=== PATIENT | female | born 1940 | race Caucasian/White ===

== ENCOUNTER 2016-06-21 12:37 | Day surgery (SDC) | payer MEDICARE ==
[~2016-06-21] VITALS: Ht 170.2 cm; Wt 105.9 kg
[~2016-06-21 12:37] MED LIST: ACIDOPHILUS PO; ASPIRIN 81M81 MG/TA2 PO; CEFTIN 250250 MG/TAB PO; CENTRUM SILVER1 TA1 PO; DILAUDID 2MG TAB2 MG PO; ELITE MAGNESIUM1 TAB PO; INDERAL 20MG20 MG PO; K-DUR 2020 MEQ PO; K-DUR20 MEQ PO; K-POTASSIUM CH20 ME1 PO; LISINOPRIL/HCTZ1 TA2 PO; LOPRESSOR 225 MG/TAB PO; LOPRESSOR 550 MG/TAB PO; MOBIC15 MG PO; MULTIPLE VITAMI1 CAP PO; MVI PO; NEURONTIN100 MG/CAP PO; NEURONTIN300 MG/CAP PO; OGEN 0.6250.75 MG PO; OGEN 0.625MG0.625 MG PO; ORTHO-EST0.75 MG PO; POTASSIUM CH2 MEQ/ML PO; PRIL40 PO; PRILOSEC 20MG20 MG PO; PRILOSEC20 M1 PO; PRINIVIL20 MG PO; PROZAC 20MG20 MG PO; PYRIDIUM200 M1 PO; TYLENOL 325MG325 MG PO; TYLENOL ARTHRI650 M1 PO; ULTRAM 50MG TAB50 MG PO; VERAPAMIL HCL240 M2 PO; VESICARE PO; VITAMIN B12 PO; VITAMIN B12250 MCG PO; VITAMIN C BUFF500 MG PO; VITAMIN C500 MG PO; VITAMIN E1000 IU PO; VITAMIN E1000 U/CAP PO; WELCHOL 625MG625 MG PO; ZOCOR 20MG20 MG PO; ZYRTEC 10MG10 MG PO
[2016-06-21 13:50] VITALS: BP 143/81; PULSE 64; TEMP 97.5
[2016-06-21] MEDS ORDERED: [UNRECOGNIZED DRUG - REMARK] (14:00)
[2016-06-21 14:55] VITALS: BP 142/78; PULSE 67; TEMP 97.7
[2016-06-21 15:00] VITALS: BP 132/76; PULSE 65
[2016-06-21 15:15] VITALS: BP 132/76; PULSE 65
[2016-06-21 15:30] VITALS: BP 145/76; PULSE 67
[2016-06-21] MEDS ORDERED: DEXILANT60 MG PO (15:41)
[2016-06-21 15:45] VITALS: BP 134/94; PULSE 65
== END 2016-06-21 16:00 | disposition home or self-care (01) ==
LOC: SDCO 12:37
DX: K22.2 Esophageal obstruction (principal); K21.9 Gastro-esophageal reflux disease without esophagitis; R13.12 Dysphagia, oropharyngeal phase; R13.10 Dysphagia, unspecified
CPT/HCPCS: OP; C1726; J2250; J3010; J7030

== ENCOUNTER 2017-06-27 09:03 | Day surgery (SDC) | payer MEDICARE ==
[~2017-06-27] VITALS: Ht 170.2 cm; Wt 104.4 kg
[~2017-06-27 09:03] MED LIST changes: +DEXILANT60 MG PO; +[UNRECOGNIZED DRUG - REMARK]
[2017-06-27] MEDS ORDERED: PROTONIX 40MG T40 MG PO (09:35)
[2017-06-27] MEDS ORDERED: MOBIC15 MG PO (09:36)
[2017-06-27 09:46] VITALS: BP 145/86; PULSE 60; TEMP 97
[2017-06-27 11:05] VITALS: BP 159/87; PULSE 66; TEMP 97.3
[2017-06-27 11:15] VITALS: BP 154/75; PULSE 63
[2017-06-27 11:30] VITALS: BP 144/84; PULSE 63
== END 2017-06-27 11:50 | disposition home or self-care (01) ==
LOC: SDCO 09:03
DX: K21.0 Gastro-esophageal reflux disease with esophagitis (principal); K22.70 Barrett's esophagus without dysplasia; I10 Essential (primary) hypertension; I25.2 Old myocardial infarction; M19.90 Unspecified osteoarthritis, unspecified site; F31.9 Bipolar disorder, unspecified; Z90.710 Acquired absence of both cervix and uterus; Z79.82 Long term (current) use of aspirin
CPT/HCPCS: J2250; J3010

== ENCOUNTER 2017-07-26 11:11 | Inpatient (IN) | payer MEDICARE ==
[~2017-07-26] VITALS: Ht 170.2 cm; Wt 102.8 kg
[~2017-07-26 11:11] MED LIST changes: +PROTONIX 40MG T40 MG PO
[2017-07-26 11:49] LABS: BASO % 0.2 % (0.0-2.0); EOS # 0.1 (0.0-0.7); EOS % 3.2 % (0-4.0); GRAN # 2.2 (1.4-6.5); GRAN % 53.7 % (42.2-75.2); HEMATOCRIT 43.3 % (37.0-47.0); HEMOGLOBIN 14.7 g/dl (12.5-16.0); LYMPH # 1.2 (1.2-3.4); LYMPH % 29.3 % (20.0-51.0); MEAN CELL VOLUME 92 fl (80.0-100.0); MEAN CORPUSCULAR HEMOGLOBIN 31 pg (27.0-31.0); MEAN CORPUSCULAR HGB CONC 34 g/dl (33.0-37.0); MEAN PLATELET VOLUME 10.2 fl (7.4-10.4); MONO # 0.5 (0.1-0.6); MONO % 13.4 % (1.7-9.3); PLATELET COUNT 199 K/mm3 (130-400); RED BLOOD COUNT 4.69 M/mm3 (4.10-5.30); REDCELL DISTRIBUTION WIDTH-CV 12.5 % (11.5-14.5)
[2017-07-26 11:53] LABS: PROTHROMBIN TIME 11.4 SECONDS (9.7-12.8)
[2017-07-26 11:56] LABS: PARTIAL THROMBOPLASTIN TIME 31.4 SECONDS (26.0-37.0)
[2017-07-26 11:59] LABS: ALANINE AMINOTRANSFERASE 31 U/L (9-52); ALBUMIN 3.9 gm/dL (3.5-5.0); ALKALINE PHOSPHATASE 62 U/L (50-136); ANION GAP 13 mmol/L (7-16); AST,SGOT 26 U/L (15-37); BILIRUBIN,TOTAL 0.6 mg/dL (0.0-1.0); BLOOD UREA NITROGEN 12 mg/dL (7-17); CALCIUM 9.4 mg/dL (8.4-10.2); CARBON DIOXIDE 26 mmol/L (22-30); CHLORIDE 106 mmol/L (98-107); CREATININE, serum 0.57 mg/dL (0.52-1.25); GLUCOSE 115 mg/dL (74-106); LIPASE 81 U/L (23-300); POTASSIUM 4.1 mmol/L (3.4-5.0); SODIUM 145 mmol/L (137-145); TOTAL PROTEIN 7.5 gm/dL (6.4-8.2)
[2017-07-26 12:23] LABS: TROPONIN-I < 0.012 ng/mL (0.000-0.034)
[2017-07-26] MEDS ORDERED: MOBIC15 MG PO (12:26)
[2017-07-26] MEDS ORDERED: WELCHOL 625MG625 MG PO (12:26)
[2017-07-26] MEDS ORDERED: K-DUR20 MEQ PO (12:26)
[2017-07-26] MEDS ORDERED: ZESTRIL 20MG TA20 MG PO (12:27)
[2017-07-26] MEDS ORDERED: PROTONIX 40MG T40 MG PO (12:27)
[2017-07-26] MEDS ORDERED: ASPIRIN 81M81 MG/TA2 PO (12:28)
[2017-07-26] MEDS ORDERED: ZYRTEC 10MG10 MG PO (12:28)
[2017-07-26] MEDS ORDERED: ULTRAM 50MG TAB50 MG PO (12:28)
[2017-07-26] MEDS ORDERED: TOPROL XL 50MG50 MG PO (12:29)
[2017-07-26] MEDS ORDERED: PROZAC 20MG20 MG PO (12:29)
[2017-07-26] MEDS ORDERED: ZOCOR 20MG20 MG PO (12:29)
[2017-07-26] MEDS ORDERED: VITAMIN C500 MG PO (12:31)
[2017-07-26] MEDS ORDERED: MEGA MULTIVITAM1 TAB PO (12:31)
[2017-07-26] MEDS ORDERED: B-12 250 MCG PO (12:31)
[2017-07-26] MEDS ORDERED: VITAMIN E 400 U4001 PO (12:32)
[2017-07-26] MEDS ORDERED: OGEN 0.6250.75 MG PO (12:33)
[2017-07-26 14:01] LABS: COLLECTION METHOD CLEAN CATCH
[2017-07-26 14:07] LABS: MUCOUS Present /lpf; PH 5 (5-8); URINE APPEARANCE Hazy; URINE BACTERIA Rare /hpf; URINE BILIRUBIN Negative (NEGATIVE); URINE BLOOD Negative (NEGATIVE); URINE COLOR Yellow; URINE GLUCOSE Negative (NEGATIVE); URINE KETONE Negative (NEGATIVE); URINE LEUKOCYTE ESTERASE Negative (NEGATIVE); URINE NITRATE Negative (NEGATIVE); URINE PROTEIN(semi-quant) Negative (NEGATIVE); URINE RBC 0-2 /hpf; URINE UROBILINOGEN Negative (NEGATIVE)
[2017-07-26 16:34] VITALS: BP 108/60; PULSE 61; TEMP 98
[2017-07-26 20:05] VITALS: BP 134/77
[2017-07-26 20:10] VITALS: BP 133/78
[2017-07-26 20:15] VITALS: BP 144/71
[2017-07-26 20:37] VITALS: PULSE 64; TEMP 98.4
[2017-07-26 21:45] VITALS: BP 162/78; PULSE 60
[2017-07-27] VITALS: BP 163/91; PULSE 57; TEMP 98.7
[2017-07-27 04:00] VITALS: BP 136/72; PULSE 59
[2017-07-27 05:39] LABS: CALCIUM 8.8 mg/dL (8.4-10.2); CREATININE, serum 0.56 mg/dL (0.52-1.25)
[2017-07-27 05:42] LABS: BASO % 0.3 % (0.0-2.0); EOS # 0.2 (0.0-0.7); EOS % 4.9 % (0-4.0); GRAN # 1.2 (1.4-6.5); GRAN % 40.4 % (42.2-75.2); HEMATOCRIT 38.8 % (37.0-47.0); HEMOGLOBIN 13.4 g/dl (12.5-16.0); LYMPH # 1.2 (1.2-3.4); LYMPH % 37.5 % (20.0-51.0); MEAN CELL VOLUME 90 fl (80.0-100.0); MEAN CORPUSCULAR HEMOGLOBIN 31 pg (27.0-31.0); MEAN CORPUSCULAR HGB CONC 35 g/dl (33.0-37.0); MEAN PLATELET VOLUME 10.6 fl (7.4-10.4); MONO # 0.5 (0.1-0.6); MONO % 16.9 % (1.7-9.3); PLATELET COUNT 175 K/mm3 (130-400); REDCELL DISTRIBUTION WIDTH-CV 12.4 % (11.5-14.5)
[2017-07-27 06:46] LABS: CHOLESTEROL 132 mg/dL (120-200); CHOLESTEROL RISK RATIO 5.7; HDL CHOLESTEROL 23 mg/dL; LDL CHOLESTEROL 69 mg/dL; TRIGLYCERIDE 199 mg/dL
[2017-07-27 07:00] LABS: TROPONIN-I < 0.012 ng/mL (0.000-0.034)
[2017-07-27 15:00] VITALS: BP 151/88; PULSE 77; TEMP 97.5
[2017-07-27 19:46] VITALS: BP 160/73; PULSE 70; TEMP 98.3
[2017-07-27 23:46] VITALS: BP 136/51; PULSE 63; TEMP 97.9
[2017-07-28] VITALS (10 sets, daily range): BP systolic 119–169; BP diastolic 45–96; PULSE 63–76; TEMP 97.9–98.7
[2017-07-28 06:33] LABS: HEMATOCRIT 41.2 % (37.0-47.0); MEAN CELL VOLUME 92 fl (80.0-100.0); MEAN CORPUSCULAR HEMOGLOBIN 31 pg (27.0-31.0); MEAN CORPUSCULAR HGB CONC 34 g/dl (33.0-37.0); MEAN PLATELET VOLUME 10.5 fl (7.4-10.4); PLATELET COUNT 186 K/mm3 (130-400); RED BLOOD COUNT 4.46 M/mm3 (4.10-5.30); REDCELL DISTRIBUTION WIDTH-CV 12.4 % (11.5-14.5)
[2017-07-28 06:40] LABS: PROTHROMBIN TIME 11.8 SECONDS (9.7-12.8)
[2017-07-28 06:51] LABS: CALCIUM 8.8 mg/dL (8.4-10.2); CREATININE, serum 0.54 mg/dL (0.52-1.25); POTASSIUM 3.8 mmol/L (3.4-5.0)
[2017-07-28] MEDS ORDERED: HCTZ 25MG TAB25 MG PO (14:18)
[2017-07-28] MEDS ORDERED: ZESTRIL40 MG PO (14:19)
[2017-07-28] MEDS ORDERED: TOPROL XL100 MG PO (14:20)
== END 2017-07-28 15:45 | disposition home or self-care (01) | DRG 287 ==
LOC: COL.ER 11:11 → MEDICAL 14:48 → ICU 21:42 → MEDICAL 07-27 17:20
PROVIDERS: Emergency Medicine; Internal Medicine; Internal Medicine Cardiovascular Disease; Nurse Practitioner Family
PROC: B2111ZZ Fluoroscopy of Multiple Coronary Arteries using Low Osmolar Contrast (ICD-10-PCS; principal; 2017-07-28)
PROC: B2151ZZ Fluoroscopy of Left Heart using Low Osmolar Contrast (ICD-10-PCS; 2017-07-28)
PROC: 4A023N8 Measurement of Cardiac Sampling and Pressure, Bilateral, Percutaneous Approach (ICD-10-PCS; 2017-07-28)
DX: I25.10 Atherosclerotic heart disease of native coronary artery without angina pectoris (principal); I10 Essential (primary) hypertension; I27.20 Pulmonary hypertension, unspecified; K21.0 Gastro-esophageal reflux disease with esophagitis; K44.9 Diaphragmatic hernia without obstruction or gangrene; K22.70 Barrett's esophagus without dysplasia
CPT/HCPCS: 99223-AI; 99232-AI; 99233-AI; 99239; G0378; J1650; J2250; J2405; J3010; J7030; Q9967

== ENCOUNTER → 2017-11-26 | Outpatient (CLI) | payer MEDICARE ==
[~2017-11-26] MED LIST changes: +B-12 250 MCG PO; +HCTZ 25MG TAB25 MG PO; +MEGA MULTIVITAM1 TAB PO; +TOPROL XL 50MG50 MG PO; +TOPROL XL100 MG PO; +VITAMIN E 400 U4001 PO; +ZESTRIL 20MG TA20 MG PO; +ZESTRIL40 MG PO
== END ==
LOC: COL.PUL 10:35
DX: I27.20 Pulmonary hypertension, unspecified (principal); Z96.611 Presence of right artificial shoulder joint; Z96.612 Presence of left artificial shoulder joint; Z98.1 Arthrodesis status
CPT/HCPCS: A9539; A9540; J7674

== ENCOUNTER → 2017-11-28 | Outpatient (CLI) | payer MEDICARE | LOC: COL.RAD 07:27 | DX: K44.9 Diaphragmatic hernia without obstruction or gangrene (principal); K30 Functional dyspepsia | CPT/HCPCS: A9541 ==

== ENCOUNTER 2018-04-30 14:06 | Emergency (ER) | payer MEDICARE ==
[~2018-04-30] VITALS: Ht 170.2 cm; Wt 100.0 kg
[2018-04-30 14:10] VITALS: TEMP 97.5
[2018-04-30] MEDS ORDERED: WELCHOL 625MG625 MG PO (14:26)
[2018-04-30] MEDS ORDERED: VITAMIN C500 MG PO (14:26)
[2018-04-30] MEDS ORDERED: PRILOTC (14:28)
[2018-04-30] MEDS ORDERED: PROZAC 20MG20 MG PO (14:29)
[2018-04-30] MEDS ORDERED: ESTRACE0.5 MG PO (14:31)
[2018-04-30 14:37] LABS: BASO % 0.4 % (0.0-2.0); EOS # 0.2 (0.0-0.7); EOS % 4.7 % (0-4.0); HEMATOCRIT 43.9 % (37.0-47.0); HEMOGLOBIN 14.7 g/dl (12.5-16.0); LYMPH # 1.2 (1.2-3.4); LYMPH % 24.2 % (20.0-51.0); MEAN CELL VOLUME 94 fl (80.0-100.0); MEAN CORPUSCULAR HEMOGLOBIN 32 pg (27.0-31.0); MEAN CORPUSCULAR HGB CONC 34 g/dl (33.0-37.0); MEAN PLATELET VOLUME 10.7 fl (7.4-10.4); MONO # 0.6 (0.1-0.6); MONO % 12.5 % (1.7-9.3); PLATELET COUNT 214 K/mm3 (130-400); RED BLOOD COUNT 4.65 M/mm3 (4.10-5.30); REDCELL DISTRIBUTION WIDTH-CV 13.1 % (11.5-14.5)
[2018-04-30 14:43] LABS: PROTHROMBIN TIME 10.9 SECONDS (9.7-12.8)
[2018-04-30 14:45] LABS: ALANINE AMINOTRANSFERASE 24 U/L (9-52); ALBUMIN 4.1 gm/dL (3.5-5.0); ALKALINE PHOSPHATASE 60 U/L (50-136); ANION GAP 7 mmol/L (7-16); AST,SGOT 25 U/L (15-37); BILIRUBIN,TOTAL 0.5 mg/dL (0.0-1.0); BLOOD UREA NITROGEN 20 mg/dL (7-17); CALCIUM 9.4 mg/dL (8.4-10.2); CARBON DIOXIDE 27 mmol/L (22-30); CHLORIDE 106 mmol/L (98-107); CREATININE, serum 0.75 mg/dL (0.52-1.25); GLUCOSE 113 mg/dL (74-106); LIPASE 100 U/L (23-300); POTASSIUM 4.1 mmol/L (3.4-5.0); SODIUM 140 mmol/L (137-145); TOTAL PROTEIN 7.1 gm/dL (6.4-8.2)
[2018-04-30 14:46] LABS: PARTIAL THROMBOPLASTIN TIME 32.4 SECONDS (26.0-37.0)
[2018-04-30 14:59] LABS: TROPONIN-I < 0.012 ng/mL (0.000-0.034)
[2018-04-30 16:39] VITALS: BP 120/58; PULSE 59
== END 2018-04-30 16:40 | disposition home or self-care (01) ==
LOC: COL.ER 14:06
PROVIDERS: Emergency Medicine
DX: R07.89 Other chest pain (principal); I10 Essential (primary) hypertension; K21.9 Gastro-esophageal reflux disease without esophagitis; E78.00 Pure hypercholesterolemia, unspecified; Z90.49 Acquired absence of other specified parts of digestive tract; Z98.890 Other specified postprocedural states; Z79.82 Long term (current) use of aspirin
CPT/HCPCS: Q9967

== ENCOUNTER → 2018-09-16 | Outpatient (CLI) | payer MEDICARE ==
[~2018-09-16] MED LIST changes: +ESTRACE0.5 MG PO; +PRILOTC
== END ==
LOC: COL.RAD 08:15
DX: R42 Dizziness and giddiness (principal)

== ENCOUNTER 2018-09-24 00:24 | Emergency (ER) | payer MEDICARE ==
[~2018-09-24] VITALS: Ht 170.2 cm; Wt 100.0 kg
[2018-09-24 01:28] VITALS: TEMP 100.1
[2018-09-24 01:32] LABS: BASO % 0.2 % (0.0-2.0); EOS # 0.2 (0.0-0.7); EOS % 2.9 % (0-4.0); GRAN # 4.8 (1.4-6.5); HEMATOCRIT 38.5 % (37.0-47.0); HEMOGLOBIN 13.3 g/dl (12.5-16.0); LYMPH # 0.5 (1.2-3.4); LYMPH % 8.1 % (20.0-51.0); MEAN CELL VOLUME 94 fl (80.0-100.0); MEAN CORPUSCULAR HEMOGLOBIN 32 pg (27.0-31.0); MEAN CORPUSCULAR HGB CONC 35 g/dl (33.0-37.0); MEAN PLATELET VOLUME 10.2 fl (7.4-10.4); MONO # 0.4 (0.1-0.6); MONO % 6.5 % (1.7-9.3); PLATELET COUNT 161 K/mm3 (130-400); REDCELL DISTRIBUTION WIDTH-CV 13.2 % (11.5-14.5)
[2018-09-24 01:43] LABS: ALBUMIN 3.9 gm/dL (3.5-5.0); BILIRUBIN,TOTAL 0.4 mg/dL (0.0-1.0); CALCIUM 9.1 mg/dL (8.4-10.2); CREATININE, serum 0.7 (0.52-1.25); POTASSIUM 4.1 mmol/L (3.4-5.0); TOTAL PROTEIN 6.8 gm/dL (6.4-8.2)
[2018-09-24 01:57] LABS: INR 0.9 (0.8-3.0); PROTHROMBIN TIME 10.9 SECONDS (9.7-12.8)
[2018-09-24 02:15] VITALS: BP 107/66; PULSE 76
== END 2018-09-24 02:30 | disposition home or self-care (01) ==
LOC: COL.ER 00:24
PROVIDERS: Nurse Practitioner
DX: T63.331A Toxic effect of venom of brown recluse spider, accidental (unintentional), initial encounter (principal); I10 Essential (primary) hypertension; I25.10 Atherosclerotic heart disease of native coronary artery without angina pectoris; F31.9 Bipolar disorder, unspecified; Z79.82 Long term (current) use of aspirin

== ENCOUNTER 2018-09-26 07:04 | Emergency (ER) | payer MEDICARE ==
[~2018-09-26] VITALS: Ht 170.2 cm; Wt 100.0 kg
[2018-09-26 07:07] VITALS: BP 124/68; PULSE 75; TEMP 98.2
[2018-09-26] MEDS ORDERED: ATARAX 25MG25 MG/TAB PO (07:27)
[2018-09-26] MEDS ORDERED: PREDNISONE20 MG PO (07:27)
== END 2018-09-26 07:51 | disposition home or self-care (01) ==
LOC: COL.ER 07:04
DX: R21 Rash and other nonspecific skin eruption (principal)

== ENCOUNTER → 2019-10-11 | Outpatient (CLI) | payer MEDICARE ==
[~2019-10-11] MED LIST changes: +ATARAX 25MG25 MG/TAB PO; +PREDNISONE20 MG PO
== END ==
LOC: COL.LAB 14:55
DX: R50.9 Fever, unspecified (principal); R19.7 Diarrhea, unspecified; Z20.828 Contact with and (suspected) exposure to other viral communicable diseases

== ENCOUNTER 2020-03-18 14:34 | Emergency (ER) | payer MEDICARE ==
[~2020-03-18] VITALS: Ht 170.2 cm; Wt 104.5 kg
[2020-03-18 14:41] VITALS: TEMP 97.3
[2020-03-18] MEDS ORDERED: FLEXERIL5 MG PO (15:29)
[2020-03-18 15:37] VITALS: BP 129/67; PULSE 59
== END 2020-03-18 15:37 | disposition home or self-care (01) ==
LOC: COL.ER 14:34
DX: M54.6 Pain in thoracic spine (principal); M54.5 Low back pain; Z90.49 Acquired absence of other specified parts of digestive tract; Z90.89 Acquired absence of other organs; Z88.5 Allergy status to narcotic agent; Z88.8 Allergy status to other drugs, medicaments and biological substances; Z79.82 Long term (current) use of aspirin
CPT/HCPCS: J1885; J2060

== ENCOUNTER → 2020-03-22 | Outpatient (CLI) | payer MEDICARE ==
[~2020-03-22] MED LIST changes: +FLEXERIL5 MG PO
== END ==
LOC: MHCPAIN 15:36
DX: M47.817 Spondylosis without myelopathy or radiculopathy, lumbosacral region (principal); M47.814 Spondylosis without myelopathy or radiculopathy, thoracic region; M53.3 Sacrococcygeal disorders, not elsewhere classified; G89.29 Other chronic pain
CPT/HCPCS: G0463

== ENCOUNTER → 2020-08-22 | Outpatient (CLI) | payer MEDICARE | LOC: MHCPAIN 13:33 | DX: M47.814 Spondylosis without myelopathy or radiculopathy, thoracic region (principal); M47.816 Spondylosis without myelopathy or radiculopathy, lumbar region; M96.1 Postlaminectomy syndrome, not elsewhere classified; G89.29 Other chronic pain | CPT/HCPCS: G0463 ==

== ENCOUNTER 2021-03-30 11:36 | Emergency (ER) | payer MEDICARE ==
[~2021-03-30] VITALS: Ht 170.2 cm; Wt 104.5 kg
[2021-03-30 13:01] LABS: BASO % 0.1 % (0.0-2.0); EOS % 0.5 % (0.0-4.0); GRAN # 6.4 K/mm3 (1.4-6.5); GRAN % 81.1 % (42.2-75.2); HEMATOCRIT 42.8 % (37.0-47.0); HEMOGLOBIN 14.9 g/dl (12.5-16.0); LYMPH # 0.7 K/mm3 (1.2-3.4); LYMPH % 8.8 % (20.0-51.0); MEAN CELL VOLUME 93 fl (80.0-100.0); MEAN CORPUSCULAR HEMOGLOBIN 33 pg (27-31); MEAN CORPUSCULAR HGB CONC 35 g/dl (33.0-37.0); MONO # 0.7 K/mm3 (0.1-0.6); MONO % 8.4 % (1.7-9.3); PLATELET COUNT 157 K/mm3 (130-400); RED BLOOD COUNT 4.59 M/mm3 (4.10-5.30); REDCELL DISTRIBUTION WIDTH-CV 13.6 % (11.5-14.5)
[2021-03-30 13:17] LABS: ALBUMIN 3.7 gm/dL (3.4-4.8); BILIRUBIN,TOTAL 0.7 mg/dL (0.2-1.2); CALCIUM 9.2 mg/dL (8.4-10.2); CREATININE, serum 1.06 mg/dL (0.57-1.11); POTASSIUM 4.7 mmol/L (3.5-4.5); TOTAL PROTEIN 7.4 gm/dL (6.2-8.1)
[2021-03-30 15:08] VITALS: TEMP 99.3
[2021-03-30 16:00] VITALS: BP 99/67; PULSE 70
== END 2021-03-30 16:00 | disposition home or self-care (01) ==
LOC: COL.ER 11:36
PROVIDERS: Nurse Practitioner Family
DX: U07.1 COVID-19 (principal); I10 Essential (primary) hypertension; E78.5 Hyperlipidemia, unspecified; K21.9 Gastro-esophageal reflux disease without esophagitis; Z73.0 Burn-out; Z79.899 Other long term (current) drug therapy
CPT/HCPCS: J2405; M0245

== ENCOUNTER 2021-10-30 08:38 | Day surgery (SDC) | payer MEDICARE ==
[~2021-10-30] VITALS: Ht 165.1 cm; Wt 102.4 kg
[~2021-10-30 08:38] MED LIST changes: -PRILOTC; +PRILOTC PO
[2021-10-30] MEDS ORDERED: MOBIC15 MG PO (08:53)
[2021-10-30 09:02] VITALS: BP 134/85; PULSE 59; TEMP 97.4
[2021-10-30 10:00] VITALS: BP 122/55; PULSE 57; TEMP 98
--- NOTE | 2021-10-30 10:00 | NUR ---
The patient arrived back to [facility] from the endoscopy suite at this time. The patient appears alert and oriented and ambulated from the cart to the recliner in her room with the stand by assistance of one nurse and appeared to tolerate the activity well. Post procedure vital signs were started at this time. The patient agrees to try a muffin and cranberry juice. The patient's was brought back to be at her bedside. Call light is within reach. Fresh warm blanket provided. Denies any further needs.
[2021-10-30 10:15] VITALS: BP 127/58; PULSE 57
--- NOTE | 2021-10-30 10:15 | NUR ---
The patient has finished the muffin and juice and appeared to tolerate them both well. The patient denies wanting anything further to eat or drink at this time. Vital signs appear stable. remains at bedside.
[2021-10-30 10:30] VITALS: BP 122/60; PULSE 53
--- NOTE | 2021-10-30 10:30 | NUR ---
The patient appears to be resting comfortably in the recliner. Vital signs appear stable. remains at bedside. The patient is waiting to speak with Dr. Barker prior to discharge.
--- NOTE | 2021-10-30 10:45 | NUR ---
Dr. Barker is done speaking with the patient and her regarding the findings of the procedure. Discharge instrucitons were reviewed with the patient and her . They both verbalized understanding and have no questions. The patient's IV to her right hand was removed and a pressure dressing was applied to the site. The patient was instructed to get dressed and notify the staff when she is ready to be escorted out.
--- NOTE | 2021-10-30 10:53 | NUR ---
The patient was escorted out via wheelchair by [employer]. The patient's belongings and discharge paperwork were sent with her. The patient's is present to drive her home.
== END 2021-10-30 10:53 | disposition home or self-care (01) ==
LOC: SDCO 08:38
DX: K29.30 Chronic superficial gastritis without bleeding (principal); K44.9 Diaphragmatic hernia without obstruction or gangrene
CPT/HCPCS: J2704; J7120

== ENCOUNTER 2022-02-18 23:05 | Emergency (ER) | payer MEDICARE ==
[~2022-02-18] VITALS: Ht 170.2 cm; Wt 102.3 kg
[2022-02-18 23:10] VITALS: TEMP 97.4
[2022-02-19] MEDS ORDERED: FLEXERIL 1010 MG/TAB PO (02:33)
[2022-02-19 02:40] VITALS: BP 124/78; PULSE 76
== END 2022-02-19 02:40 | disposition home or self-care (01) ==
LOC: COL.ER 23:05
DX: M54.50 Low back pain, unspecified (principal); Z28.310 Unvaccinated for COVID-19; Z88.5 Allergy status to narcotic agent; Z98.1 Arthrodesis status
CPT/HCPCS: J1885; J2060; J2405